=== PATIENT | male | born 1985 | race Caucasian/White ===

== ENCOUNTER 2017-01-11 22:00 | Emergency (ER) | payer SELFPAY ==
[2017-01-11 22:33] VITALS: BP 143/78
--- NOTE | 2017-01-11 23:53 | EDM.PDOC ---
[id number] Complaint: VOMITING/WEAKNESS/SOB Time Seen by Provider: 01/11/17 22:45 Source of Information: Reports: Patient, Family History Limitations: Reports: Intoxication - History of Present Illness INITIAL COMMENTS - FREE TEXT/NARRATIVE: 31-year-old male in with anxiety, a variety of physical complaints such as recurring sores that don't heal well. He has a picture of a small scab from the right helix and he says "came out of his body". He was in the emergency room in [place] less than one week ago and they told him he was "crazy". He has had weight loss. Onset: unknown/unsure Location: Reports: generalized Severity: moderate Associated Symptoms: Reports: malaise. Denies: fever/chills, loss of appetite Face Pain Score (Numeric/FACES): 8 - Related Data Allergies Allergy/AdvReac Type Severity Reaction Status Date / Time Penicillins Allergy Rash Verified 01/11/17 22:42 Home Meds: Home Meds NK [No Known Home Meds] 01/11/17 [History] Past Medical History HEENT History: Reports: Other (see below) Other HEENT History: throat infection as a child Genitourinary History: Reports: Urinary incontinence, Other (see below) Other Genitourinary History: has periods of frequenccy and urgency Dermatologic History: Reports: Urticaria, Other (see below) Other Dermatologic History: frequent sores on face, mouth, hands, and feet. Has a crawling sensation "things pushing out of my skin" - Infectious Disease History Infectious Disease History: Reports: Chicken pox - Past Surgical History GI Surgical History: Reports: Cholecystectomy Social & Family History - Tobacco Use Smoking Status *Q: Never Smoker Second Hand Smoke Exposure: No - Caffeine Use Caffeine Use: Reports: Coffee, Energy drinks, Soda - Recreational Drug Use Recreational Drug Use: No ED ROS GENERAL - Review of Systems Review Of Systems: See Below Constitutional: Reports: malaise, other (Insomnia). Denies: fever Respiratory: Reports: Shortness of Breath (Intermittent shortness of breath) Cardiovascular: Reports: Palpitations. Denies: Chest pain GI/Abdominal: Reports: Nausea. Denies: Abdominal pain : Reports: no symptoms Skin: Reports: other (Lesions that won't heal, "parasites") Psychiatric: Reports: Agitation, Anxiety ED EXAM, GENERAL - Physical Exam Exam: See Below Exam Limited By: No limitations General Appearance: alert, anxious Eye Exam: bilateral eye: normal inspection Respiratory/Chest: no respiratory distress, lungs clear Cardiovascular: regular rate, rhythm, extra beats (Occasional) GI/Abdominal: non tender Neurological: alert, oriented Psychiatric: anxious Course - Vital Signs Last Recorded V/S: Last Vital Signs Temp 98.0 F 01/11/17 22:31 Pulse 89 01/11/17 22:31 Resp 16 01/11/17 22:31 BP 143/78 H 01/11/17 22:31 Pulse Ox 96 01/11/17 22:31 - Re-Assessments/Exams Free Text/Narrative Re-Assessment/Exam: 01/12/17 00:02 I asked for records from [place] as well as a urine for a drug screen, when the patient admitted he was doing methamphetamine. When his parents heard that no further workup was needed, they were going to try to get him into a treatment program tomorrow. Departure - Departure Time of Disposition: 00:03 Disposition: Home, Self-Care 01 Condition: good Clinical Impression: Methamphetamine abuse Instructions: Stimulant Use Disorder-Amphetamines, Stimulant Use Disorder- Methamphetamines Referrals: PCP,None [Primary Care Provider] - Forms: ED Department Discharge Care Plan Goals: Take steps to do whatever you need to do to stop using methamphetamine.
== END 2017-01-12 00:06 | disposition home or self-care (01) ==
LOC: JP.ED 22:00
DX: F15.10 Other stimulant abuse, uncomplicated (principal); Z88.0 Allergy status to penicillin; Z90.49 Acquired absence of other specified parts of digestive tract
CPT/HCPCS: 99282; 99283